=== PATIENT | male | born 1940 | race Caucasian/White ===

== ENCOUNTER 2017-10-02 22:56 | Emergency (ER) | payer OTHER ==
[~2017-10-02] VITALS: Ht 162.6 cm; Wt 79.6 kg
[~2017-10-02 22:56] MED LIST: ADVAIR 250/501 DISK IH; ASPIR-LOW81 MG; Aspirin E.C. PO; BENICAR HCT 401 EAC1; Coreg PO; Cozaar PO; HYDROCHLOROTHIA25 MG; K-Dur PO; K-Lor,Klor-Con PO; LIPITOR80 MG PO; Lasix PO; Levaquin PO; Lipitor PO; NIFEDIPINE ER90 MG; Norvasc PO; PLAVIX75 MG; PREDNISONE10 MG PO; PROAIR HFA8.5 GM IH; Proventil,Ventolin H IH; TOPROL XL50 MG; Tylenol/Codeine #3 PO; predniSONE PO
[2017-10-02 23:03] VITALS: BP 176/113
[2017-10-02 23:24] LABS: HEMATOCRIT 44.2 % (38.0-50.0); MCH 31.1 PG (29.0-34.0); MCHC 33.9 G/DL (30.0-36.0); MCV 91.7 FL (86-99); PLATELET COUNT 247 K/uL (156-360); RBC DIS.WIDTH-SD 43.8 % (39-53); RED BLOOD COUNT 4.82 M/uL (4.00-5.50); WHITE BLOOD COUNT 16.1 K/uL (4.1-10.2)
[2017-10-02 23:34] LABS: CHLORIDE 107 mEq/L (99-109); POTASSIUM 3.8 mEq/L (3.7-5.4); SODIUM 139 mEq/L (136-147)
[2017-10-02 23:35] LABS: GLUCOSE 214 mg/dL (70-99)
[2017-10-02 23:39] LABS: CREATININE 1.3 mg/dL (0.6-1.3); GFR ESTIMATE (CALCULATED) 57 mL/min/ (58.99-99999)
[2017-10-02 23:40] LABS: UREA NITROGEN (BUN) 16 mg/dL (9-23)
[2017-10-02 23:45] LABS: TROP-I INTERPRETATION NEGATIVE; TROPONIN-I 0.03 ng/mL (0.0-0.30)
== END 2017-10-03 01:28 | disposition left against medical advice (07) ==
LOC: EME 22:56
DX: R07.9 Chest pain, unspecified (principal); Z53.21 Procedure and treatment not carried out due to patient leaving prior to being seen by health care provider
CPT/HCPCS: 71020; 80048; 84484; 85027; 93005